=== PATIENT | female | born 1980 | race Caucasian/White ===

== ENCOUNTER 2022-10-09 14:25 | Observation (INO) | payer MEDICAID ==
[~2022-10-09] VITALS: Ht 162.6 cm; Wt 99.8 kg
== END 2022-10-09 17:35 | disposition home or self-care (01) ==
LOC: 8 EST LDRP 14:25
PROVIDERS: ADMIT Obstetrics & Gynecology; ATTEND Obstetrics & Gynecology
DX: O26.892 Other specified pregnancy related conditions, second trimester (principal); R10.2 Pelvic and perineal pain; R10.30 Lower abdominal pain, unspecified; O62.9 Abnormality of forces of labor, unspecified; O60.02 Preterm labor without delivery, second trimester; Z3A.26 26 weeks gestation of pregnancy
CPT/HCPCS: 59025; G0378; 99281